=== PATIENT | female | born 1990 | race Caucasian/White ===

== ENCOUNTER 2017-03-28 16:13 | Observation (INO) ==
[2017-03-28 14:10] LABS: Amphetamine Screen,Urine Negative ng/mL (Cutoff=1000); Barbiturate Screen,Urine Negative ng/mL (Cutoff=200); Benzodiazepines Screen,Urine Negative ng/mL (Cutoff=200); Cannabinoid Screen,Urine Negative ng/mL (Cutoff = 50); Cocaine Screen,Urine Negative ng/mL (Cutoff= 300); Opiate Screen,Urine Negative ng/mL (Cutoff=300); Phencyclidine Screen,Urine Negative ng/mL (Cutoff=25)
--- NOTE | 2017-03-28 14:55 | OB/GYN History & Physical ---
Date of Encounter: 03/28/17 Time of Encounter: 14:51 Assessment and Plan (1) 37 weeks gestation of Current visit: No Status: Acute admitted for observation (2) Uterine contractions during Current visit: No Status: Acute labor evaluation (3) NST (non-stress test) reactive on surveillance Current visit: Yes Status: Acute baseline 135 bpm moderate variability +15x15 accels no decels noted. Cat. 1 tracing. History of Present Illness Chief complaint: contractions and LOF HPI: Ms. Beasley is a 26 year old female at 37w3d presents to labor and delivery with complaints of contractions all week long. Patient also reports when she sat up this morning she felt a small gush but denies any leaking since. Patient reports +FM. Denies VB. Patient denies [place], visual disturbances or epigastric pain. Patient denies any complications with current . Blood Type: A Positive Rubella: Immune Hep B: Nonreactive GBS: Negative Past Med Surg Social Fam HX - Past Medical History Medical history: other Psychiatric history: anxiety, depression - Social History Smoking Status: Never smoker Smokeless Tobacco Status: No Alcohol use: none Drug use: none - Family History Grandmother Living Status: Hx Family Endocrine Disorder: No (type 2 diabetes) Obstetrical History - Pregnancies : 1 Para: 0 Term: 0 : 0 Ab's: 0 Livin Medications and Allergies Bisacodyl [Dulcolax] 5 mg PO HS 03/28/17 [History] BuPROPion [Wellbutrin] 150 mg PO BID 03/28/17 [History] FLUoxetine HCl [PROzac] 20 mg PO DAILY 03/28/17 [History] Ferrous Sulfate 325 mg PO DAILY 03/28/17 [History] 19 Tablet 1 tab PO DAILY 03/28/17 [History] 3 Allergy/AdvReac Type Severity Reaction Status Date / Time almond Allergy Anaphylaxis Verified 03/28/17 13:51 Review of System OB - Constitutional Constitutional ROS IM: no chills, no fever(s), no headache(s) - Cardiovascular Cardiovascular: no chest pain, no lightheadedness, no palpitations, no syncope - Respiratory Respiratory: no dyspnea - Gastrointestinal Gastrointestinal: cramping, no abdominal pain, no diarrhea, no heartburn, no nausea, no vomiting - Genitourinary Genitourinary: no abnormal vaginal bleeding, no dysuria, no flank pain, no urinary frequency, no vaginal discharge, no vaginal odor Exam - Constitutional Constitutional: well developed, well nourished, no acute distress, average body habitus - HEENT HEENT: Normocephaly, Mucus Membranes Moist - Neck Neck exam: full ROM, supple - Lungs Respiratory exam: CTAB - Cardiovascular Cardiovascular exam: RRR, +S1, +S2 - Abdomen Abdomen: Present: bowel sounds normal, gravid, non tender - Extremities Extremities exam: full ROM, normal capillary refill, normal inspection Deep Tendon Reflex Grade: 2+ Normal - Cervix Dilation: 4 (4.5 per RN) Effacement: 80 Station: -2 - Uterus Uterus exam: Present: normal contour - Anus/Rectum Anus/Rectum: Present: normal perianal skin - Comments Comments: FHR 135 bpm moderate variability +15x15 accels no decels noted. Contractions 3- 10 min apart. Cat. 1 tracing Results All other labs normal. - VTE Reasons for not Prescribing Prophylaxis: Treatment not Indicated - Low risk for VTE
--- NOTE | 2017-03-28 16:20 | Event Note ---
Date of Encounter: 03/28/17 Time of Encounter: 16:19 BRAYAN 4.5//-1
--- NOTE | 2017-03-28 17:33 | Discharge Summary ---
Date of Encounter: 03/28/17 Time of Encounter: 17:34 - Discharge Diagnosis (1) 37 weeks gestation of Priority: Primary Status: Acute Comments: admitted for labor evaluation (2) Uterine contractions during Priority: Secondary Status: Acute Comments: false labor no cervical change (3) NST (non-stress test) reactive on surveillance Priority: Secondary Status: Acute Comments: fhr baseline 135 bpm moderate variability +15x15 accels no decels noted. Cat. 1 tracing - Discharge Medications Home Medications: Bisacodyl [Dulcolax] 5 mg PO HS 03/28/17 [History] BuPROPion [Wellbutrin] 150 mg PO BID 03/28/17 [History] FLUoxetine HCl [PROzac] 20 mg PO DAILY 03/28/17 [History] Ferrous Sulfate 325 mg PO DAILY 03/28/17 [History] 19 Tablet 1 tab PO DAILY 03/28/17 [History] Allergies/Adverse Reactions: 3 Allergy/AdvReac Type Severity Reaction Status Date / Time almond Allergy Anaphylaxis Verified 03/28/17 13:51 Data Procedures and tests throughout hospitalization: Laboratory Tests 03/28/17 13:40 Urine Opiates Screen Negative Ur Barbiturates Screen Negative Ur Phencyclidine Scrn Negative Ur Amphetamines Screen Negative U Benzodiazepines Scrn Negative Urine Cocaine Screen Negative U Marijuana (THC) Screen Negative Labs on day of discharge: Labs from last 24 hours 03/28/17 13:40 Urine Opiates Screen Negative Ur Barbiturates Screen Negative Ur Phencyclidine Scrn Negative Ur Amphetamines Screen Negative U Benzodiazepines Scrn Negative Urine Cocaine Screen Negative U Marijuana (THC) Screen Negative Date of admission: 03/28/17 13:20 Primary care physician: Lisa Miranda CNP Discharging clinician: Coby Munoz Anticipated date of discharge: 03/28/17 - Patient Status Disposition: Home, Self-Care Condition: Good Functional capacity at discharge: independent ambulation - Discharge Instructions Follow Up With: Lisa Miranda CNP [Primary Care Provider] - Nataly Marlow DO [Partnered Physician] - - Diet and Activity Activity: increase activity as tolerated Diet: regular diet Hospital Course 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 CAt. 1 tracing. Irregular contractions - VTE Reasons for not Prescribing Prophylaxis: Treatment not Indicated - Low risk for VTE
== END 2017-03-28 17:41 | disposition home or self-care (01) ==
LOC: 1NENULAB
PROVIDERS: ADMIT Obstetrics & Gynecology; ATTEND Obstetrics & Gynecology

== ENCOUNTER 2017-04-01 01:49 | Inpatient (IN) ==
[2017-04-01] MEDS ORDERED: Metoclopramide 10 MG/2 ML VIAL IVP PRN (01:59)
[2017-04-01] MEDS ORDERED: Naloxone 0.4 MG/ML INJ IVP PRN (01:59)
[2017-04-01] MEDS ORDERED: Famotidine 20 MG/2 ML VIAL IVP PRN (01:59)
[2017-04-01] MEDS ORDERED: Ondansetron 4 MG/2 ML VIAL IVP PRN (01:59)
--- NOTE | 2017-04-01 02:04 | OB/GYN History & Physical ---
Date of Encounter: 04/01/17 Time of Encounter: 02:02 Assessment and Plan (1) Spontaneous rupture of membranes Current visit: Yes Status: Acute Admit for expectant management. Epidural if requested. Anticipate . (2) 38 weeks gestation of Current visit: Yes Status: Acute (3) Elevated blood pressure affecting in third trimester, antepartum Current visit: No Status: Acute PIH labs ordered. History of Present Illness Chief complaint: contractions HPI: Ms. Beasley is a 26 year old female presenting at 38 weeks with c/o contractions and leaking fluid. She reports a gush of clear fluid at 0040 followed by continued leaking. She then started having regular contractions a few minutes later. Her has been complicated by macrosomia and elevated 1 hour glucose test. Her 3 hour GTT was normal. She denies any other complaints at this time. Good FM. Blood type A positive Rubella immune Serologies negative GBS negative Past Med Surg Social Fam HX - Past Medical History Medical history: other Psychiatric history: anxiety, depression - Social History Smoking Status: Never smoker Smokeless Tobacco Status: No Alcohol use: none Drug use: none - Family History Grandmother Living Status: Hx Family Endocrine Disorder: No (type 2 diabetes) Obstetrical History - Pregnancies : 1 Medications and Allergies Bisacodyl [Dulcolax] 5 mg PO HS 03/28/17 [History] BuPROPion [Wellbutrin] 150 mg PO BID 03/28/17 [History] FLUoxetine HCl [PROzac] 20 mg PO DAILY 03/28/17 [History] Ferrous Sulfate 325 mg PO DAILY 03/28/17 [History] 19 Tablet 1 tab PO DAILY 03/28/17 [History] 3 Allergy/AdvReac Type Severity Reaction Status Date / Time almond Allergy Anaphylaxis Verified 03/28/17 13:51 Review of System OB All systems PM: reviewed and no additional remarkable complaints except as stated Exam - Constitutional Constitutional: well developed, well nourished - HEENT HEENT: Mucus Membranes Moist - Lungs Respiratory exam: CTAB - Cardiovascular Cardiovascular exam: RRR - Abdomen Abdomen: Present: gravid, non tender - Extremities Extremities exam: normal inspection - Cervix Dilation: 5 - Anus/Rectum Anus/Rectum: Present: normal perianal skin Results Result Diagrams: 04/01/17 02:05 All other labs normal. - VTE Reasons for not Prescribing Prophylaxis: Treatment not Indicated - Low risk for VTE
[2017-04-01] MEDS ORDERED: *HR* Nalbuphine 20 MG/ML AMPUL IVP ONE (02:12)
[2017-04-01] MEDS ORDERED: Ringers Solution, Lactated 1,000 ML ONE (02:16)
[2017-04-01 02:18] LABS: Basophils % 0.4 %; Eosinophils # 0.2 K/mcL (0.0-0.6); Eosinophils % 1.4 %; Hematocrit 33.9 % (35.3-44.9); Hemoglobin 10.7 g/dL (11.5-15.4); Immature Granulocytes % 0.7 % (0-4); Lymphocytes % 27.1 %; Mean Corpuscular HGB Conc 31.6 g/dL (31.6-35.5); Mean Corpuscular Hemoglobin 27.4 pg (28.0-33.3); Mean Corpuscular Volume 86.9 fL (83.0-100.0); Mean Platelet Volume 11.3 fL (9.4-12.4); Monocytes # 1.2 K/mcL (0.0-1.3); Neutrophils # 6.6 K/mcL (1.6-8.9); Platelet Count 243 K/mcL (140-400); Red Cell Distribution Width 15.6 % (11.5-14.5); Segmented Neutrophils % 59.4 %
[2017-04-01] MEDS ORDERED: Lidocaine 1% 20 ML MDV ONE (02:45)
--- NOTE | 2017-04-01 04:38 | OB/GYN Procedure Note ---
Delivery - Delivery Date: 04/01/17 Provider: Amanda Yuen Intrapartum events: precipitous labor- <3hr Delivery induction: none Delivery augmentation: rupture of membranes Delivery monitor: external FHT, external uterine Anesthesia: intravenous Estimated Blood Loss: 450 - (s) A Infant Delivery Date: 04/01/17 Infant Delivery Time: 03:39 Presentation: vertex Gender: Male Viability: Viable Pounds: 9 Ounces: 0 Weight Gram: 4.09 kg at 1 minute: 8 at 5 mins: 9 Shoulder Dystocia: not encountered Placenta: spontaneous Cord: 3 umbilical vessels, delivered through nuchal - Repair Episiotomy: none Laceration Description: Perineal - 2nd Degree, Vaginal - Complications Delivery complications: uterine atony Delivery comments: Pt progressed rapidly to complete and +1. She pushed effectively to for viable male weighing 9lbs with apgars 8/9. After pulsations ceased the cord was clamped and cut and the placenta delivered spontaneous and intact. Uterine atony was noted and cytotec was administered. Bleeding was controlled with fundal massage. 2nd degree perineal and right vaginal lacerations were repaired with 2-0 Chromic. EBL 450ml. Mother and baby stable following delivery. - Disposition Mom disposition: stable in LDR disposition: stable in LDR
[2017-04-01 05:06] LABS: Alanine Aminotransferase 7 Units/L (7-52); Aspartate Amino Transferase 15 Units/L (13-39); BUN/Creatinine Ratio 11 (6-26); Blood Urea Nitrogen 7 mg/dL (6-20); Lactate Dehydrogenase 146 Units/L (140-271); Uric Acid 4.9 mg/dL (2.3-7.6); eGFR For African Americans > 60 (> 60); eGFR For Non-African Americans > 60 (> 60)
[2017-04-01] MEDS ORDERED: Oxytocin 20 units/ LR 1000 mL 20 UNIT/1,000 ML BAG IVC ONE (06:36)
[2017-04-01] MEDS ORDERED: Acetaminophen 325 MG TABLET PO PRN (07:15)
[2017-04-01] MEDS ORDERED: Measles/Mumps/Rubella Vacc 0.5 ML VIAL SQ PRN (07:15)
[2017-04-01] MEDS ORDERED: Benzocaine/Menthol 56 GM AEROSOL SPRAY TP PRN (07:15)
[2017-04-01] MEDS ORDERED: Oxytocin 20 units/ LR 1000 mL 20 UNIT/1,000 ML BAG IVC SCH (07:15)
[2017-04-01] MEDS: FLUoxetine 20 MG CAPSULE PO SCH (09:07)
[2017-04-01] MEDS: Prenatal Vit/FA 1 EACH TABLET PO SCH (09:07)
[2017-04-01] MEDS ORDERED: miSOPROStol 100 MCG TABLET PO ONE (11:59)
[2017-04-01] MEDS: Ibuprofen 600 MG TABLET PO PRN ×2 (16:24→23:03)
[2017-04-02] MEDS: Ibuprofen 600 MG TABLET PO PRN ×2 (06:30→14:25)
[2017-04-02] MEDS: Prenatal Vit/FA 1 EACH TABLET PO SCH (08:37)
[2017-04-02] MEDS: FLUoxetine 20 MG CAPSULE PO SCH (08:37)
--- NOTE | 2017-04-02 09:14 | Discharge Summary ---
Date of Encounter: 04/02/17 Time of Encounter: 09:11 - Discharge Diagnosis (1) Vaginal delivery Priority: Primary Status: Acute Comments: Pain well controlled with ibuprofen Tolerating regular diet well Voiding independently Passing flatus and has had BM Lochia light Discharge home today (2) Breast feeding status of mother Priority: Secondary Status: Acute Comments: well Call LC for needs after discharge (3) History of depression Priority: Secondary Status: Acute Comments: Start prozac on discharge Call for further concerns - Discharge Medications Prescriptions: Ibuprofen [Motrin] 600 mg PO Q6HR PRN #30 tablet PRN Reason: Cramping Docusate [Colace] 100 mg PO BID #60 capsule Ferrous Sulfate 325 mg PO DAILY #30 tablet Home Medications: Bisacodyl [Dulcolax] 5 mg PO HS 03/28/17 [History] 19 Tablet 1 tab PO DAILY 03/28/17 [History] Acetaminophen [Tylenol] 650 mg PO Q6HR PRN tablet 04/02/17 [Rx] Benzocaine/Menthol [place] [Dermoplast [place]] 1 appl TP QID PRN aerosol 04/02/17 [Rx] Docusate [Colace] 100 mg PO BID #60 capsule 04/02/17 [Rx] Ferrous Sulfate 325 mg PO DAILY #30 tablet 04/02/17 [Rx] Ibuprofen [Motrin] 600 mg PO Q6HR PRN #30 tablet 04/02/17 [Rx] Allergies/Adverse Reactions: 3 Allergy/AdvReac Type Severity Reaction Status Date / Time almond Allergy Anaphylaxis Verified 03/28/17 13:51 Data Procedures and tests throughout hospitalization: Laboratory Tests 04/01/17 04/01/17 02:05 02:05 WBC 11.1 RBC 3.90 Hgb 10.7 L Hct 33.9 L MCV 86.9 MCH 27.4 L MCHC 31.6 RDW 15.6 H Plt Count 243 MPV 11.3 Immature Gran % 0.7 Seg Neutrophils % 59.4 Lymphocytes % 27.1 Monocytes % 11.0 Eosinophils % 1.4 Basophils % 0.4 Neutrophils # 6.6 Lymphocytes # 3.0 Monocytes # 1.2 Eosinophils # 0.2 Basophils # 0.0 BUN 7 Creatinine 0.61 Est GFR ( Amer) > 60 Est GFR (Non-Af Amer) > 60 BUN/Creatinine Ratio 11 Uric Acid 4.9 AST 15 ALT 7 Lactate Dehydrogenase 146 Date of admission: 04/01/17 01:49 Primary care physician: Lisa Miranda CNP Consults: 04/01/17 07:15 Consult to Director Specialty [CONS] Routine Comment: Vaginal delivery, consult needed Discharging clinician: Janna Urias Anticipated date of discharge: 04/02/17 - Patient Status Disposition: Home, Self-Care Condition: Good Functional capacity at discharge: independent ambulation Overall status at discharge: patient is progressing back to baseline - Discharge Instructions Follow Up With: Lisa Miranda CNP [Primary Care Provider] - Nataly Marlow DO [Partnered Physician] - - Diet and Activity Activity: increase activity as tolerated Diet: regular diet Hospital Course Reason for admission: active labor, IUP at term, ROM Delivery: Episiotomy: none Laceration: 2nd degree Other procedures: none complications: none Discharge diagnosis: IUP at term delivered [place] baby: female Time Attestation: Total time spent providing and/or coordinating discharge services: Time Spent: Less than 30 minutes Exam - Constitutional Vitals: Temp Pulse Resp BP Pulse Ox 98.2 F 102 18 137/86 96 04/01/17 21:30 04/01/17 21:30 04/01/17 21:30 04/01/17 21:30 04/01/17 21:30 General appearance IM: cooperative, A&O X 3, pleasant, no acute distress - Respiratory Respiratory exam: Present: CTAB - Cardiovascular Cardiovascular exam IM: Present: RRR, +S1, +S2 - GI/Abdominal GI/Abdominal exam IM: normal bowel sounds, no peritoneal signs - Rectal Rectal exam: deferred - Uterine Tone: Firm Uterus Position: 1 Finger Below Umbilicus, Midline - Extremities Exam Extremities exam IM: Present: full ROM, pedal edema - Neurological Exam Neurological exam: alert, oriented X3 - Psychiatric Additional comments: Feeling well today
[2017-04-02 09:23] VITALS: BP 133/85
== END 2017-04-02 16:07 | disposition home or self-care (01) | DRG 774 ==
LOC: 1NENULAB 01:49 → 1NENUOBS 07:23
PROVIDERS: ADMIT Registered Nurse; ATTEND Registered Nurse

== ENCOUNTER 2017-04-07 10:12 | Inpatient (IN) ==
--- NOTE | 2017-04-07 10:58 | Emergency Department Note ---
Disposition Clinical Impression: Swelling of lower extremity Dyspnea Qualifiers: Dyspnea type: unspecified Qualified Code(s): R06.00 - Dyspnea, unspecified Disposition: Home, Self-Care Condition: Fair Reasons to Return/Additional Instructions: . Referrals: Lisa Miranda CNP [Primary Care Provider] - Forms: ED Satisfaction Letter Time of Disposition: 15:30 General Adult HPI - General Chief complaint: ED Extremity Problem,Nontraumatic Stated complaint: Swelling in both legs Time Seen by Provider: 04/07/17 10:21 Source: patient Mode of arrival: ambulatory Limitations: no limitations Nursing Notes Reviewed: Yes Vital Signs Reviewed: Yes - History of Present Illness HPI Narrative: 26-year-old female approximately 7 days present for evaluation of lower ext swelling that appears to be right greater than left.. Patient also noted a nonproductive cough. Notes to be dyspneic with lying down. Patient notes an uneventful . No history of high blood pressure diabetes. Patient states he still urinating. Denying any chest pain. Denying any fevers or cough. Patient was told by her wildlife protector to go to the ER for further evaluation. Pain Scale: 1 - Related Data Home Medications Medication Instructions Recorded Confirmed BuPROPion XL (24 HR) [Wellbutrin 150 mg PO DAILY 04/07/17 04/07/17 XL] FLUoxetine HCl [PROzac] 20 mg PO DAILY 04/07/17 04/07/17 Previous Rx's Medication Instructions Recorded Acetaminophen [Tylenol] 650 mg PO Q6HR PRN tablet 04/02/17 Benzocaine/Menthol [place] 1 appl TP QID PRN aerosol 04/02/17 [Dermoplast [place]] Docusate [Colace] 100 mg PO BID #60 capsule 04/02/17 Ferrous Sulfate 325 mg PO DAILY #30 tablet 04/02/17 Ibuprofen [Motrin] 600 mg PO Q6HR PRN #30 tablet 04/02/17 Allergies Allergy/AdvReac Type Severity Reaction Status Date / Time almond Allergy Anaphylaxis Verified 04/07/17 10:50 All systems ED: reviewed and negative except as stated. Constitutional: Denies: fever Cardiovascular: Denies: chest pain, palpitations Respiratory: Reports: cough, dyspnea. Denies: sputum production Gastrointestinal: Denies: abdominal pain, nausea, vomiting Past Medical History - Past Medical History Medical history: Reports: other Surgical history: Reports: other Psychiatric history: Reports: anxiety, depression - Social History Smoking Status: Never smoker Smokeless Tobacco Status: No Alcohol use: Reports: none Drug use: Reports: none Physical Exam - General Limitations: no limitations General appearance: alert, in no apparent distress - Head Head exam: atraumatic, normocephalic, normal inspection - Eye Eye exam: Present: normal appearance, PERRL, EOMI - ENT ENT exam: normal exam, normal oropharynx, mucous membranes moist - Neck Neck exam: Present: normal inspection, trachea midline - Chest Chest inspection: Present: normal inspection, symmetric chest wall rise - Respiratory Respiratory exam: Present: normal lung sounds bilaterally. Absent: respiratory distress - Cardiovascular Cardiovascular exam: Present: regular rate, normal rhythm. Absent: systolic murmur - Abdominal Exam Abdominal exam: Present: soft, Non-Tender - Extremities Exam Extremities exam: Present: normal inspection, pedal edema (Right asymmetric larceny swelling tender on the posterior calf) - Back Exam Back exam: Present: normal inspection - Neurological Exam Neurological exam: Present: alert, oriented X3 - Skin Skin exam: Present: warm, dry, intact, normal color Course Course Narrative: Patient seen and examined. Patient appears to be in no acute distress. Patient will get basic labs, chest x-ray and DVT study of the right leg. - Reevaluation(s) Reevaluation #1: She has a negative ultrasound of the lower legs Time: 12:07 Reevaluation #2: Patient seen and examined. Patient appears to be resting comfortably. No acute distress. Patient was updated on plan of care. Concerns for cardiomyopathy. Awaiting ED media technician.` Time: 12:21 Reevaluation #3: Patient's CT results reveal that she has findings consistent with multifocal pneumonia. However given the patient's cough is consistent patients not requiring oxygen. Given these findings the patient should best be evaluated as an inpatient with IV antibiotics. Spoke with pharmacy regarding dosing of antibiotics during breast-feeding. States it the patient should formula feed. This was discussed with the patient states she will formula feed. Time: 16:31 - Consultations Consultation #1: With Dr. Lares who states that they will tell the hvac field service technician to come down to the ER to perform the echo. Time: 11:38 Consultation #2: With Dr. Lares he does not seem just that this is cardiomyopathy given the recent echo. Patient is given Lasix. However given the patient's dyspnea a negative ultrasound lower leg does not rule out a PE. Patient will get a CTA of the chest. Time: 15:28 Consultation #3: Spoke with hospitalist who recommends getting a formal NEUROLOGY STROKE PHYSICIAN consult. Time: 17:03 Vital Signs Temperature 99.0 F 04/07/17 10:14 Pulse Rate 95 04/07/17 10:14 Respiratory Rate 18 04/07/17 10:14 Blood Pressure 150/97 04/07/17 10:14 O2 Sat by Pulse Oximetry 97 04/07/17 10:14 Temperature 99.0 F 04/07/17 10:14 Pulse Rate 81 04/07/17 16:13 Respiratory Rate 16 04/07/17 16:13 Blood Pressure 147/95 04/07/17 16:13 O2 Sat by Pulse Oximetry 94 04/07/17 16:13 Oxygen Delivery Oxygen Delivery Room Air Medical Decision Making - MDM Narrative Medical decision making narrative: Patient presents with dyspnea. Patient's . Patient had an extensive workup in the emergency department. Patient had imaging of the lower extremity including an ultrasound which showed no evidence of DVT. Patient had echo as there is concern cardiomyopathy however results were reviewed to the reservations clerk and did not feel that it was cardiomyopathy. Patient does have slightly elevated BNP and mild pulmonary congestion. Patient was given Lasix in the ER. Patient was also given a CTA of the chest. Patient's CT of the chest shows multifocal pneumonia. Patient will be treated as healthcare associated pneumonia given her recent hospital stay with her of her . - Lab Data Lab results reviewed: Yes I reviewed the patient's lab results. Result diagrams: 04/07/17 11:34 04/07/17 11:34 Lab Results 04/07/17 04/07/17 04/07/17 Range/Units 11:34 11:34 11:34 WBC 10.0 (4.3-11.1) K/mcL RBC 3.32 L (3.82-4.97) M/mcL Hgb 9.3 L (11.5-15.4) g/dL Hct 29.9 L (35.3-44.9) % MCV 90.1 (83.0-100.0) fL MCH 28.0 (28.0-33.3) pg MCHC 31.1 L (31.6-35.5) g/dL RDW 16.9 H (11.5-14.5) % Plt Count 368 D (140-400) K/mcL MPV 9.6 (9.4-12.4) fL Immature Gran % 1.4 (0-4) % Seg Neutrophils % 69.1 % Lymphocytes % 19.6 % Monocytes % 7.7 % Eosinophils % 1.8 % Basophils % 0.4 % Neutrophils # 6.9 (1.6-8.9) K/mcL Lymphocytes # 2.0 (0.6-4.6) K/mcL Monocytes # 0.8 (0.0-1.3) K/mcL Eosinophils # 0.2 (0.0-0.6) K/mcL Basophils # 0.0 (0.0-0.2) K/mcL Sodium 141 (136-145) mEq/L Potassium 4.0 (3.5-5.1) mEq/L Chloride 110 H (98-107) mEq/L Carbon Dioxide 22 L (23-29) mEq/L BUN 11 (6-20) mg/dL Creatinine 0.81 (0.60-1.20) mg/dL Est GFR ( Amer) > 60 (> 60) Est GFR (Non-Af Amer) > 60 (> 60) BUN/Creatinine Ratio 14 (6-26) Glucose 88 (70-105) mg/dL Calculated Osmolality 291 (280-300) Calcium 8.4 L (8.6-10.3) mg/dL Total Bilirubin 0.3 (0.3-1.0) mg/dL AST 15 (13-39) Units/L ALT 13 (7-52) Units/L Alkaline Phosphatase 100 (34-104) Units/L Troponin I < 0.03 (< 0.04) ng/mL B-Natriuretic Peptide (Less than 100) pg/mL Serum Total Protein 5.8 L (6.4-8.9) g/dL Albumin 2.9 L (3.5-5.7) g/dL Globulin 2.9 (2.4-3.5) g/dL Albumin/Globulin Ratio 1.0 L (1.1-2.2) 04/07/17 Range/Units 11:34 WBC (4.3-11.1) K/mcL RBC (3.82-4.97) M/mcL Hgb (11.5-15.4) g/dL Hct (35.3-44.9) % MCV (83.0-100.0) fL MCH (28.0-33.3) pg MCHC (31.6-35.5) g/dL RDW (11.5-14.5) % Plt Count (140-400) K/mcL MPV (9.4-12.4) fL Immature Gran % (0-4) % Seg Neutrophils % % Lymphocytes % % Monocytes % % Eosinophils % % Basophils % % Neutrophils # (1.6-8.9) K/mcL Lymphocytes # (0.6-4.6) K/mcL Monocytes # (0.0-1.3) K/mcL Eosinophils # (0.0-0.6) K/mcL Basophils # (0.0-0.2) K/mcL Sodium (136-145) mEq/L Potassium (3.5-5.1) mEq/L Chloride (98-107) mEq/L Carbon Dioxide (23-29) mEq/L BUN (6-20) mg/dL Creatinine (0.60-1.20) mg/dL Est GFR ( Amer) (> 60) Est GFR (Non-Af Amer) (> 60) BUN/Creatinine Ratio (6-26) Glucose (70-105) mg/dL Calculated Osmolality (280-300) Calcium (8.6-10.3) mg/dL Total Bilirubin (0.3-1.0) mg/dL AST (13-39) Units/L ALT (7-52) Units/L Alkaline Phosphatase (34-104) Units/L Troponin I (< 0.04) ng/mL B-Natriuretic Peptide 290 H (Less than 100) pg/mL Serum Total Protein (6.4-8.9) g/dL Albumin (3.5-5.7) g/dL Globulin (2.4-3.5) g/dL Albumin/Globulin Ratio (1.1-2.2) - Radiology Data Radiology results reviewed: Yes I reviewed the patient's radiology results. Chest X-Ray 04/07/17 10:30 IMPRESSION: 1. Minimal prominence of the pulmonary vasculature, left greater than right. 2. Otherwise, no focal consolidation or pleural effusion. D/ / Matt Sanchez MD / Matt Sanchez MD Interpreting Provider: Matt Sanchez MD - EKG Data EKG #1 EKG attestation: Yes I reviewed and interpreted this EKG. EKG shows normal: sinus rhythm Rate: normal Rhythm: NSR [place]/QRS: normal Q waves: III Interpretation: no acute changes S.B.A.Daryl. - S.Nadine Situation: Demographics Background: Presenting Complaint Assessment: Vital Signs, Course and respsone to treatment Recommendation: Barrier(s) to disposition, Recommendation based on pending studies, treatments, or consults S.B.Maurice Report Given to: Curtis Pope Repor Time: 17:02 Attestation Statement - Attestation Attestation: I examined this patient and my medical decision-making was reviewed with the Resident Physician. I agree with the documented findings, disposition and treatment plan as described except to the extent set forth below. Patient 80s when he elects swelling and difficulty breathing. Patient states her legs are increasingly swollen. She is about a week . She also feels like there is "fluid in her lungs." On examination she is in no distress. Her lungs are clear. She does have significant edema to bilateral lower extremities. Right greater than left.. DVT study. Cardiac workup. Patient with vascular congestion on chest x-ray. Will discuss with cardiology. Patient with multifocal pneumonia. Echo shows normal EF. Not felt to have a cardiomyopathy. OB is aware of the consult. Admitted to medicine.
[2017-04-07 11:46] LABS: Basophils % 0.4 %; Eosinophils # 0.2 K/mcL (0.0-0.6); Eosinophils % 1.8 %; Hematocrit 29.9 % (35.3-44.9); Hemoglobin 9.3 g/dL (11.5-15.4); Immature Granulocytes % 1.4 % (0-4); Lymphocytes % 19.6 %; Mean Corpuscular HGB Conc 31.1 g/dL (31.6-35.5); Mean Corpuscular Volume 90.1 fL (83.0-100.0); Mean Platelet Volume 9.6 fL (9.4-12.4); Monocytes # 0.8 K/mcL (0.0-1.3); Monocytes % 7.7 %; Neutrophils # 6.9 K/mcL (1.6-8.9); Platelet Count 368 K/mcL (140-400); Red Blood Count 3.32 M/mcL (3.82-4.97); Red Cell Distribution Width 16.9 % (11.5-14.5); Segmented Neutrophils % 69.1 %
--- NOTE | 2017-04-07 12:29 | Electrocardiograph Report ---
[place] Test Date: 2017-04-07 Pat Name: Yvtete Beasley Department: 102 Room: Gender: F Physical Therapy Aide: Tmanai : 1990 Requested By: Abhishek Dunham Order Number: [id number] Rosangela MD: Carlyle Salas MD Measurements Intervals [place] Rate: 94 P: 21 VT: 150 QRS: 54 QRSD: 83 T: 19 QT: 345 QTc: 396 Interpretive Statements SINUS RHYTHM WARNING: DATA QUALITY MAY AFFECT INTERPRETATION Electronically Signed On 04-07-2017 12:27:48 EST by Carlyle Salas MD
[2017-04-07 12:48] LABS: Alanine Aminotransferase 13 Units/L (7-52); Albumin 2.9 g/dL (3.5-5.7); Alkaline Phosphatase 100 Units/L (34-104); Aspartate Amino Transferase 15 Units/L (13-39); BUN/Creatinine Ratio 14 (6-26); Bilirubin,Total 0.3 mg/dL (0.3-1.0); Blood Urea Nitrogen 11 mg/dL (6-20); Calcium 8.4 mg/dL (8.6-10.3); Carbon Dioxide 22 mEq/L (23-29); Chloride 110 mEq/L (98-107); Globulin 2.9 g/dL (2.4-3.5); Glucose 88 mg/dL (70-105); Osmolality,Calculated 291 (280-300); Sodium 141 mEq/L (136-145); Total Protein 5.8 g/dL (6.4-8.9); eGFR For African Americans > 60 (> 60); eGFR For Non-African Americans > 60 (> 60)
[2017-04-07] MEDS ORDERED: Furosemide 20 MG/2 ML VIAL IVP ONE (14:28)
[2017-04-07] MEDS ORDERED: Piperacillin/Tazobactam 3.375 GM in 0.9 % Sodium Chloride Mini Bag 100 ML IVPB ONE (16:29)
--- NOTE | 2017-04-07 18:10 | Emergency Department Note ---
Disposition Clinical Impression: Swelling of lower extremity Dyspnea Qualifiers: Dyspnea type: unspecified Qualified Code(s): R06.00 - Dyspnea, unspecified Pneumonia Qualifiers: Pneumonia type: due to unspecified organism Laterality: unspecified laterality Lung location: unspecified part of lung Qualified Code(s): J18.9 - Pneumonia, unspecified organism Pulmonary edema Qualifiers: Chronicity: chronic Qualified Code(s): J81.1 - Chronic pulmonary edema Disposition: Home, Self-Care Condition: Fair Reasons to Return/Additional Instructions: . Referrals: Lisa Miranda CNP [Primary Care Provider] - Forms: ED Satisfaction Letter Time of Disposition: 18:11 General Adult HPI - General Chief complaint: ED Extremity Problem,Nontraumatic Stated complaint: Swelling in both legs Time Seen by Provider: 04/07/17 10:21 Source: patient Mode of arrival: ambulatory Limitations: no limitations - History of Present Illness HPI Narrative: Continuation of documentation. Pain Scale: 1 - Related Data Home Medications Medication Instructions Recorded Confirmed BuPROPion XL (24 HR) [Wellbutrin 150 mg PO DAILY 04/07/17 04/07/17 XL] FLUoxetine HCl [PROzac] 20 mg PO DAILY 04/07/17 04/07/17 Previous Rx's Medication Instructions Recorded Acetaminophen [Tylenol] 650 mg PO Q6HR PRN tablet 04/02/17 Benzocaine/Menthol [place] 1 appl TP QID PRN aerosol 04/02/17 [Dermoplast [place]] Docusate [Colace] 100 mg PO BID #60 capsule 04/02/17 Ferrous Sulfate 325 mg PO DAILY #30 tablet 04/02/17 Ibuprofen [Motrin] 600 mg PO Q6HR PRN #30 tablet 04/02/17 Allergies Allergy/AdvReac Type Severity Reaction Status Date / Time almond Allergy Anaphylaxis Verified 04/07/17 10:50 Constitutional: Denies: fever Cardiovascular: Denies: chest pain, palpitations Respiratory: Reports: cough, dyspnea. Denies: sputum production Gastrointestinal: Denies: abdominal pain, nausea, vomiting Past Medical History - Past Medical History Medical history: Reports: other Surgical history: Reports: other Psychiatric history: Reports: anxiety, depression - Social History Smoking Status: Never smoker Smokeless Tobacco Status: No Alcohol use: Reports: none Drug use: Reports: none Physical Exam - General Limitations: no limitations General appearance: alert, in no apparent distress Course - Reevaluation(s) Reevaluation #1: Patient began to develop a reaction to the antibiotics. Likely the vancomycin. Clindamycin will be DC'd at this point. Patient will be given Benadryl. Patient does have lower lip edema as well as redness to the face and upper chest. No signs of airway obstruction. No wheezing. Time: 18:08 Vital Signs Temperature 99.0 F 04/07/17 10:14 Pulse Rate 95 04/07/17 10:14 Respiratory Rate 18 04/07/17 10:14 Blood Pressure 150/97 04/07/17 10:14 O2 Sat by Pulse Oximetry 97 04/07/17 10:14 Temperature 99.0 F 04/07/17 10:14 Pulse Rate 104 04/07/17 18:10 Respiratory Rate 16 04/07/17 18:10 Blood Pressure 151/89 04/07/17 18:10 O2 Sat by Pulse Oximetry 99 04/07/17 18:10 Oxygen Delivery Oxygen Delivery Room Air Medical Decision Making - Lab Data Result diagrams: 04/07/17 11:34 04/07/17 11:34 Lab Results 04/07/17 04/07/17 04/07/17 Range/Units 11:34 11:34 11:34 WBC 10.0 (4.3-11.1) K/mcL RBC 3.32 L (3.82-4.97) M/mcL Hgb 9.3 L (11.5-15.4) g/dL Hct 29.9 L (35.3-44.9) % MCV 90.1 (83.0-100.0) fL MCH 28.0 (28.0-33.3) pg MCHC 31.1 L (31.6-35.5) g/dL RDW 16.9 H (11.5-14.5) % Plt Count 368 D (140-400) K/mcL MPV 9.6 (9.4-12.4) fL Immature Gran % 1.4 (0-4) % Seg Neutrophils % 69.1 % Lymphocytes % 19.6 % Monocytes % 7.7 % Eosinophils % 1.8 % Basophils % 0.4 % Neutrophils # 6.9 (1.6-8.9) K/mcL Lymphocytes # 2.0 (0.6-4.6) K/mcL Monocytes # 0.8 (0.0-1.3) K/mcL Eosinophils # 0.2 (0.0-0.6) K/mcL Basophils # 0.0 (0.0-0.2) K/mcL Sodium 141 (136-145) mEq/L Potassium 4.0 (3.5-5.1) mEq/L Chloride 110 H (98-107) mEq/L Carbon Dioxide 22 L (23-29) mEq/L BUN 11 (6-20) mg/dL Creatinine 0.81 (0.60-1.20) mg/dL Est GFR ( Amer) > 60 (> 60) Est GFR (Non-Af Amer) > 60 (> 60) BUN/Creatinine Ratio 14 (6-26) Glucose 88 (70-105) mg/dL Calculated Osmolality 291 (280-300) Calcium 8.4 L (8.6-10.3) mg/dL Total Bilirubin 0.3 (0.3-1.0) mg/dL AST 15 (13-39) Units/L ALT 13 (7-52) Units/L Alkaline Phosphatase 100 (34-104) Units/L Troponin I < 0.03 (< 0.04) ng/mL B-Natriuretic Peptide (Less than 100) pg/mL Serum Total Protein 5.8 L (6.4-8.9) g/dL Albumin 2.9 L (3.5-5.7) g/dL Globulin 2.9 (2.4-3.5) g/dL Albumin/Globulin Ratio 1.0 L (1.1-2.2) 04/07/17 Range/Units 11:34 WBC (4.3-11.1) K/mcL RBC (3.82-4.97) M/mcL Hgb (11.5-15.4) g/dL Hct (35.3-44.9) % MCV (83.0-100.0) fL MCH (28.0-33.3) pg MCHC (31.6-35.5) g/dL RDW (11.5-14.5) % Plt Count (140-400) K/mcL MPV (9.4-12.4) fL Immature Gran % (0-4) % Seg Neutrophils % % Lymphocytes % % Monocytes % % Eosinophils % % Basophils % % Neutrophils # (1.6-8.9) K/mcL Lymphocytes # (0.6-4.6) K/mcL Monocytes # (0.0-1.3) K/mcL Eosinophils # (0.0-0.6) K/mcL Basophils # (0.0-0.2) K/mcL Sodium (136-145) mEq/L Potassium (3.5-5.1) mEq/L Chloride (98-107) mEq/L Carbon Dioxide (23-29) mEq/L BUN (6-20) mg/dL Creatinine (0.60-1.20) mg/dL Est GFR ( Amer) (> 60) Est GFR (Non-Af Amer) (> 60) BUN/Creatinine Ratio (6-26) Glucose (70-105) mg/dL Calculated Osmolality (280-300) Calcium (8.6-10.3) mg/dL Total Bilirubin (0.3-1.0) mg/dL AST (13-39) Units/L ALT (7-52) Units/L Alkaline Phosphatase (34-104) Units/L Troponin I (< 0.04) ng/mL B-Natriuretic Peptide 290 H (Less than 100) pg/mL Serum Total Protein (6.4-8.9) g/dL Albumin (3.5-5.7) g/dL Globulin (2.4-3.5) g/dL Albumin/Globulin Ratio (1.1-2.2)
[2017-04-07] MEDS ORDERED: Naloxone 0.4 MG/ML INJ IVP PRN (21:24)
[2017-04-07] MEDS ORDERED: Acetaminophen 325 MG TABLET PO PRN (21:32)
[2017-04-07] MEDS ORDERED: Benzocaine/Menthol 56 GM AEROSOL SPRAY TP PRN (21:32)
[2017-04-07] MEDS ORDERED: Ibuprofen 600 MG TABLET PO PRN (21:32)
--- NOTE | 2017-04-07 21:40 | Internal Med History&Physical ---
Date of Encounter: 04/07/17 Time of Encounter: 20:00 Assessment and Plan (1) CHF (congestive heart failure) Current visit: Yes Status: Acute Pt has b/l leg swelling, exertional SOB and mild elevated BNP. Echo shows EF 60- 65% not support cardiomyopathy. Suspect diastolic CHF. - Place pt on lasix 20mg iv daily. - Strict I/O - Will consult cardio as pt is young and no previous hx of CHF. Qualifiers: Heart failure type: diastolic Heart failure chronicity: acute Qualified Code(s): I50.31 - Acute diastolic (congestive) heart failure (2) Pneumonia Current visit: Yes Status: Acute CTA shows multifocal pneumonia. Pt was recent hospitalized. Consider HCAP. Pt is allergic to vanco in ER. - Zyvox has conflict with pt's psych medication. Place pt on doxycyclin and zosyn. - Cont supportive treatment - Hold during abx treatment. Qualifiers: Pneumonia type: due to unspecified organism Laterality: bilateral Lung location: upper lobe of lung Qualified Code(s): J18.9 - Pneumonia, unspecified organism (3) Swelling of lower extremity Current visit: Yes Status: Acute Possibly due to CHF. Management as above. (4) History of depression Current visit: No Status: Acute Cont home meds. (5) DVT prophylaxis Current visit: Yes Status: Acute Lovenox SC Internal Medicine - H&P: HPI Chief complaint: Leg swelling Admitted From: Home Plans for Post Hospital Care: Home History of present illness: Ms. Beasley is a 26 year old female with hx of depression and recent baby on last Tuesday present to ER for b/l leg swelling. Pt said leg swelling started by the end of but get even worse after delivery. Pt denies leg pain. Pt denies fever, runny nose, or sore throat. Pt has mild nonproductive cough for about 3 days. Pt c/o SOB on exertion. In ER, leg US doppler ordered, preliminary result negative for DVT. CTA was also ordered, no PE but was found multifocal pneumonia. Echo was ordered and pt was found LVEF 60-65%. BNP mildly elevated. Pt was admitted for HCAP and possible diastolic CHF. Past Med Surg Social Fam HX - Past Medical History Medical history: other Psychiatric history: anxiety, depression - Past Surgical History Surgical History: other - Social History Smoking Status: Never smoker Smokeless Tobacco Status: No Alcohol use: none Drug use: none - Family History Grandmother Adopted: No Living Status: Hx Family Cardiac Disorders: Yes (chf) Hx Family Respiratory Disorders: No Hx Family Cancer: Yes (colon ca) Hx Family GI Disorders: No Hx Family Endocrine Disorder: Yes (dm) Hx Family Neuromuscular Disorders: No Hx Family Neurologic Disorders: No Hx Family HEENT Disorders: No Hx Family Autoimmune Disorders: No Internal Medicine - H&P: Meds Acetaminophen [Tylenol] 650 mg PO Q6HR PRN tablet 04/02/17 [Rx] Benzocaine/Menthol [place] [Dermoplast [place]] 1 appl TP QID PRN aerosol 04/02/17 [Rx] Docusate [Colace] 100 mg PO BID #60 capsule 04/02/17 [Rx] Ferrous Sulfate 325 mg PO DAILY #30 tablet 04/02/17 [Rx] Ibuprofen [Motrin] 600 mg PO Q6HR PRN #30 tablet 04/02/17 [Rx] BuPROPion XL (24 HR) [Wellbutrin XL] 150 mg PO DAILY 04/07/17 [History] FLUoxetine HCl [PROzac] 20 mg PO DAILY 04/07/17 [History] 3 Allergy/AdvReac Type Severity Reaction Status Date / Time almond Allergy Anaphylaxis Verified 04/07/17 10:50 All Systems PM: A 10-system review of systems was performed and is negative for pertinent findings except as documented above in the HPI. - Constitutional Vitals: Temp Pulse Resp BP Pulse Ox 99.0 F 88 18 159/99 100 04/07/17 10:14 04/07/17 19:31 04/07/17 19:31 04/07/17 19:31 04/07/17 19:31 General appearance: Present: A&O X 3, no acute distress, answers questions appropriately - Head Head exam: Present: atraumatic, normocephalic - Eye Eye exam: Present: PERRL, conjuntiva pink, sclera anicteric Pupils: Present: PERRL - Neck Neck exam general surgery: Present: supple, trachea midline. Absent: lymphadenopathy - Respiratory Respiratory exam: Present: CTAB. Absent: accessory muscle use, rales, rhonchi, wheezes - Cardiovascular Cardiovascular exam: Present: RRR, +S1, +S2. Absent: diastolic murmur, gallop, rubs, systolic murmur - GI/Abdominal GI/Abdominal exam: Present: normal bowel sounds, soft, no peritoneal signs. Absent: distended, tenderness - Extremities Exam Extremities exam: Present: pedal edema (B/L pitting pedal edema up to knees, Rt > Lt), warm, radial pulses palpable and symmetrical. Absent: calf tenderness, cyanotic - Neurological Exam Neurological exam: Present: CN II-XII intact, oriented X3, no focal deficits. Absent: pronater drift, facial droop, speech deficit - Skin Skin exam: Present: dry, intact Internal Med - H&P Results - Labs CBC & Chem 7: 04/07/17 11:34 04/07/17 11:34
--- NOTE | 2017-04-07 22:18 | OB/GYN Consult Note ---
Date of Encounter: 04/08/17 Time of Encounter: 22:00 Assessment and Plan (1) Status post vaginal delivery Current Visit: Yes Status: Acute POD #6 Patient denies abnormal uterine bleeding, denies abnormal breast discharge or pain. Fundus firm No further OBGYN intervention required at this time, will sign off for inpatient care. Please follow-up post- care outpatient. Thank you for the consult. History of Present Illness Consult date: 04/07/17 Reason for consult: other (POD #6 without complications presents with BL LE edema) Chief complaint: Bilateral LE swelling History of present illness: Ms. Beasley is a 26 year old female POD#6 with hx of depression presents to ED with complaints of b/l leg swelling. Pt reports leg swelling started by the end of but worsening since delivery. Pt denies leg pain. Pt denies fever, runny nose, or sore throat. Pt has mild nonproductive cough for about 3 days. She admits to SOB on exertion. In ER, leg US doppler ordered, preliminary result negative for DVT. CTA was also ordered, no PE but was found multifocal pneumonia. Echo was ordered and pt was found LVEF 60-65%. BNP mildly elevated. Pt was admitted for HCAP and possible diastolic CHF. Patient denies increased vaginal bleeding, breast tenderness or abnormalities. Per ED note, patient developed reaction to Vancomycin and received dose of benadryl. Past Med Surg Social Fam HX - Past Medical History Medical history: other Psychiatric history: anxiety, depression - Past Surgical History Surgical History: other - Social History Smoking Status: Never smoker Smokeless Tobacco Status: No Alcohol use: none Drug use: none - Family History Grandmother Adopted: No Living Status: Hx Family Cardiac Disorders: Yes (chf) Hx Family Respiratory Disorders: No Hx Family Cancer: Yes (colon ca) Hx Family GI Disorders: No Hx Family Endocrine Disorder: Yes (dm) Hx Family Neuromuscular Disorders: No Hx Family Neurologic Disorders: No Hx Family HEENT Disorders: No Hx Family Autoimmune Disorders: No Medications and Allergies Acetaminophen [Tylenol] 650 mg PO Q6HR PRN tablet 04/02/17 [Rx] Benzocaine/Menthol [place] [Dermoplast [place]] 1 appl TP QID PRN aerosol 04/02/17 [Rx] Docusate [Colace] 100 mg PO BID #60 capsule 04/02/17 [Rx] Ferrous Sulfate 325 mg PO DAILY #30 tablet 04/02/17 [Rx] Ibuprofen [Motrin] 600 mg PO Q6HR PRN #30 tablet 04/02/17 [Rx] BuPROPion XL (24 HR) [Wellbutrin XL] 150 mg PO DAILY 04/07/17 [History] FLUoxetine HCl [PROzac] 20 mg PO DAILY 04/07/17 [History] 3 Allergy/AdvReac Type Severity Reaction Status Date / Time almond Allergy Anaphylaxis Verified 04/07/17 10:50 vancomycin Allergy Swelling Verified 04/07/17 22:40 of Lip/Tongue/Throat Review of Systems Constitutional: no excessive sweating, no weight loss Nose, mouth and throat: no dizziness, no headache(s) Cardiovascular: no chest pain, no palpitations Respiratory: no cough, no dyspnea Gastrointestinal: no abdominal pain, no change in bowel habits Musculoskeletal: no muscle weakness, no numbness Musculoskeletal: bilateral: foot swelling Integumentary: no hirsutism, no striae Psychiatric: no depression, no difficulty concentrating Endocrine: as per HPI Hematologic/Lymphatic: no easy bruising, no lymphadenopathy Exam - Vital Signs Vital signs: Initial Vital Signs Temp Pulse Resp BP Pulse Ox 99.0 F 95 18 150/97 97 04/07/17 10:14 04/07/17 10:14 04/07/17 10:14 04/07/17 10:14 04/07/17 10:14 - Constitutional Constitutional: well developed, well nourished, no acute distress - HEENT HEENT: Normocephaly, Mucus Membranes Moist - Neck Neck exam: full ROM - Lungs Respiratory exam: rales - Cardiovascular Cardiovascular exam: RRR - Abdomen Abdomen: Present: bowel sounds normal - Extremities Extremities exam: calf tenderness, pedal edema Deep Tendon Reflex Grade: 2+ Normal - Uterus Uterus exam: Present: normal size (Fundus U-2), normal contour Results Result Diagrams: 04/07/17 11:34 04/07/17 11:34 Abnormal lab results RBC 3.32 M/mcL (3.82-4.97) L 04/07/17 11:34 Hgb 9.3 g/dL (11.5-15.4) L 04/07/17 11:34 Hct 29.9 % (35.3-44.9) L 04/07/17 11:34 MCHC 31.1 g/dL (31.6-35.5) L 04/07/17 11:34 RDW 16.9 % (11.5-14.5) H 04/07/17 11:34 Chloride 110 mEq/L (98-107) H 04/07/17 11:34 Carbon Dioxide 22 mEq/L (23-29) L 04/07/17 11:34 Calcium 8.4 mg/dL (8.6-10.3) L 04/07/17 11:34 B-Natriuretic Peptide 290 pg/mL (Less than 100) H 04/07/17 11:34 Serum Total Protein 5.8 g/dL (6.4-8.9) L 04/07/17 11:34 Albumin 2.9 g/dL (3.5-5.7) L 04/07/17 11:34 Albumin/Globulin Ratio 1.0 (1.1-2.2) L 04/07/17 11:34 All other labs normal. Consult Discharge Plan - Plan Referrals: Lisa Miranda, PURCHASING OFFICER [Primary Care Provider] -
[2017-04-08] MEDS ORDERED: *HR* Enoxaparin 40 MG/0.4 ML SYRINGE SQ SCH (06:00)
[2017-04-08] MEDS ORDERED: Doxycycline 100 MG in 0.9 % Sodium Chloride Mini Bag 100 ML IVPB SCH (06:00)
[2017-04-08 06:04] LABS: Basophils # 0.1 K/mcL (0.0-0.2); Basophils % 0.6 %; Eosinophils # 0.3 K/mcL (0.0-0.6); Eosinophils % 2.6 %; Hematocrit 32.5 % (35.3-44.9); Hemoglobin 10.1 g/dL (11.5-15.4); Immature Granulocytes % 0.8 % (0-4); Lymphocytes # 2.7 K/mcL (0.6-4.6); Lymphocytes % 25.6 %; Mean Corpuscular HGB Conc 31.1 g/dL (31.6-35.5); Mean Corpuscular Hemoglobin 27.9 pg (28.0-33.3); Mean Corpuscular Volume 89.8 fL (83.0-100.0); Mean Platelet Volume 9.8 fL (9.4-12.4); Monocytes # 0.9 K/mcL (0.0-1.3); Monocytes % 8.9 %; Neutrophils # 6.4 K/mcL (1.6-8.9); Platelet Count 390 K/mcL (140-400); Red Blood Count 3.62 M/mcL (3.82-4.97); Red Cell Distribution Width 17.2 % (11.5-14.5); Segmented Neutrophils % 61.5 %
[2017-04-08 06:29] LABS: BUN/Creatinine Ratio 12 (6-26); Blood Urea Nitrogen 11 mg/dL (6-20); Calcium 8.4 mg/dL (8.6-10.3); Carbon Dioxide 25 mEq/L (23-29); Chloride 106 mEq/L (98-107); Glucose 93 mg/dL (70-105); Magnesium 2.2 mg/dL (1.6-2.6); Osmolality,Calculated 287 (280-300); Potassium 3.9 mEq/L (3.5-5.1); Sodium 139 mEq/L (136-145); eGFR For African Americans > 60 (> 60); eGFR For Non-African Americans > 60 (> 60)
[2017-04-08] MEDS ORDERED: FLUoxetine 20 MG CAPSULE PO SCH (09:00)
[2017-04-08] MEDS ORDERED: Furosemide 20 MG/2 ML VIAL IVP SCH (09:00)
[2017-04-08] MEDS ORDERED: BuPROPion XL (24 HR) 150 MG TABLET PO SCH (09:00)
--- NOTE | 2017-04-08 11:21 | Cardiology Consult Note ---
Date of Encounter: 04/08/17 Time of Encounter: 11:18 Assessment and Plan (1) Volume overload Current Visit: Yes Status: Acute Patient is a 26 year old female who is one week removed from vaginal delivery. She describes the development of lower extremity edema prior to delivery, which seemed to worsen after delivery. She also describes shortness of breath. Testing in the emergency room was negative for DVT, PE, but did demonstrate evidence of possible pulmonary vascular congestion. Patient given Lasix. Patient states lower extremity edema has completely resolved, dyspnea has greatly improved. Echocardiogram demonstrates normal LV function, no significant valvular disease. It seems this fluid retention is likely related to recent , delivery with associated fluid shifts. I suspect this is noncardiogenic. No further cardiac testing. Patient's volume status appears to be back to baseline. Low sodium diet encouraged. Your management regarding pneumonia. Cardiology will sign off. Thanks. Qualifiers: Hypervolemia type: unspecified Qualified Code(s): E87.70 - Fluid overload, unspecified Discussion w patient/family: The assessment and plan as outlined above was discussed with the patient and/or family members who expressed understanding and agreement. All questions were answered. Thank you for involving us in the care of your patient. Please call with any questions. History of Present Illness Consult date: 04/08/17 Requesting physician: Giovanny King Consult reason: Fluid retention Chief complaint: Swelling, shortness of breath History of present illness: Ms. Beasley is a 26 year old female who delivered a baby approximately one week ago by vaginal delivery. Patient reports likely edema and swelling prior to delivery, which had slowly developed throughout the course of her . Reports shortness of breath and cough for the last few days. Patient seen in the ER yesterday. Lower extremity venous duplex negative for DVT. CTA negative for PE, but demonstrated evidence of multifocal pneumonia and a possible component of pulmonary edema. Patient given a dose of Lasix, which she states greatly improved her symptoms. She states her lower extremity edema is resolved. She is on antibiotics for possible pneumonia. Past Med Surg Social Fam HX - Past Medical History Medical history: other Psychiatric history: anxiety, depression - Past Surgical History Surgical History: other - Social History Smoking Status: Never smoker Smokeless Tobacco Status: No Alcohol use: none Drug use: none - Family History Grandmother Adopted: No Living Status: Hx Family Cardiac Disorders: Yes (chf) Hx Family Respiratory Disorders: No Hx Family Cancer: Yes (colon ca) Hx Family GI Disorders: No Hx Family Endocrine Disorder: Yes (dm) Hx Family Neuromuscular Disorders: No Hx Family Neurologic Disorders: No Hx Family HEENT Disorders: No Hx Family Autoimmune Disorders: No Medications and Allergies Acetaminophen [Tylenol] 650 mg PO Q6HR PRN tablet 04/02/17 [Rx] Benzocaine/Menthol [place] [Dermoplast [place]] 1 appl TP QID PRN aerosol 04/02/17 [Rx] Docusate [Colace] 100 mg PO BID #60 capsule 04/02/17 [Rx] Ferrous Sulfate 325 mg PO DAILY #30 tablet 04/02/17 [Rx] Ibuprofen [Motrin] 600 mg PO Q6HR PRN #30 tablet 04/02/17 [Rx] BuPROPion XL (24 HR) [Wellbutrin XL] 150 mg PO DAILY 04/07/17 [History] FLUoxetine HCl [PROzac] 20 mg PO DAILY 04/07/17 [History] 3 Allergy/AdvReac Type Severity Reaction Status Date / Time almond Allergy Anaphylaxis Verified 04/07/17 10:50 vancomycin Allergy Swelling Verified 04/08/17 09:59 of Lip/Tongue/Throat All Systems Review: A 10-system review of systems was performed and is negative for pertinent findings except as documented above in the HPI. - Cardiovascular Cardiovascular: as per HPI, dyspnea at rest, dyspnea on exertion, leg edema - Respiratory Respiratory: cough Physical Examination Vital Signs, Last 4 Hours Temp Pulse Resp BP Pulse Ox 04/08/17 07:36 98.5 F 88 18 144/98 96 General: Conversant, No Apparent Distress HEENT: Atraumatic, Normocephaly, Mucus Membranes Moist Neck: No JVD, Normal carotid pulses Cardiac: Reg Rate and Rhythm, Normal S1 and S2, No Murmur Lungs: Normal Breath Sounds, No Wheeze, Rales, Rhonchi Neuro: Alert and responsive, No focal deficits noted Abdomen: Soft, Non-Tender Skin: No rashes noted on visualized skin Musculoskeletal: No Chest Wall Tenderness Extremities: No Clubbing, No Cyanosis, No Edema Results 04/08/17 05:45 04/08/17 05:45 Lab Results 04/08/17 04/08/17 05:45 05:45 WBC 10.5 Hgb 10.1 L Hct 32.5 L Plt Count 390 Sodium 139 Potassium 3.9 Chloride 106 Carbon Dioxide 25 BUN 11 Creatinine 0.94 Glucose 93 Calcium 8.4 L Magnesium 2.2 - Imaging and Cardiology Echo: report reviewed - EKG Interpretation EKG results cardiology: personally reviewed Consult Discharge Plan - Plan Referrals: Lisa Miranda, MANDIE [Primary Care Provider] -
[2017-04-08 11:30] VITALS: BP 158/106
[2017-04-08 11:42] LABS: Bilirubin,Urine Negative (Negative); Blood,Urine Large (Negative); Color,Urine Yellow (Yellow); Glucose,Urine (UA) Normal (Normal); Ketones,Urine Negative (Negative); Leukocyte Esterase,Urine Large (Negative); Nitrite,Urine Negative (Negative); Protein,Urine Trace mg/dL (Neg-Trace); Urobilinogen,Urine Normal (Normal)
[2017-04-08 11:44] LABS: Bacteria,Urine None Seen per hpf (None-Few); Clarity,Urine Slightly Cloudy (Clear); Hyaline Casts,Urine None Seen per lpf (None-Few); RBC,Urine TNTC per hpf (0-3); Squamous Epithelial Cell,Urine Few per lpf (None-Few); WBC,Urine 50-100 per hpf (0-3)
[2017-04-08 11:54] LABS: Protein/Creatinine Ratio,Urine 2.15 mg/mg (0.00-0.20)
[2017-04-08 14:39] LABS: Protein/Creatinine Ratio,Urine 0.11 mg/mg (0.00-0.20)
--- NOTE | 2017-04-08 14:40 | OB/GYN Consult Note ---
Date of Encounter: 04/08/17 Time of Encounter: 14:34 Assessment and Plan (1) hypertension Current Visit: Yes Status: Acute BP 140's-150's/90's-100's today. Pt denies s/sx preeclampsia. PIH labs WNL. UPCR elevated on clean catch specimen but will recollect straight cath specimen due to lochia contamination. Await UPCR results. Start labetalol 200mg PO BID for blood pressure management. Will call Dr. De La Cruz with repeat BP and UPCR results to discuss further managment. (2) Status post vaginal delivery Current Visit: Yes Status: Acute Pt meeting all milestones. History of Present Illness Consult date: 04/08/17 Requesting physician: Melchor Cooper Reason for consult: other ( hypertension) History of present illness: Ms. Beasley is a 26 year old female who presented POD#6 s/p with hx of depression presents to ED with complaints of b/l leg swelling. Pt reports leg swelling started by the end of but worsening since delivery. Pt denies leg pain. Pt denies fever, runny nose, or sore throat. Pt has mild nonproductive cough for about 3 days. She admits to SOB on exertion. In ER, leg US doppler ordered, preliminary result negative for DVT. CTA was also ordered, no PE but was found multifocal pneumonia. Echo was ordered and pt was found LVEF 60-65%. BNP mildly elevated. Pt was admitted for pneumonia and possible diastolic CHF. Patient denies increased vaginal bleeding, breast tenderness or abnormalities. She has been treated with zosyn and doxycycline for pneumonia. She also received lasix. She reports feeling much better since admission. She denies [place], vision changes or RUQ pain. She is pumping breastmilk for baby. Past Med Surg Social Fam HX - Past Medical History Medical history: other Psychiatric history: anxiety, depression - Past Surgical History Surgical History: other - Social History Smoking Status: Never smoker Smokeless Tobacco Status: No Alcohol use: none Drug use: none - Family History Grandmother Adopted: No Living Status: Hx Family Cardiac Disorders: Yes (chf) Hx Family Respiratory Disorders: No Hx Family Cancer: Yes (colon ca) Hx Family GI Disorders: No Hx Family Endocrine Disorder: Yes (dm) Hx Family Neuromuscular Disorders: No Hx Family Neurologic Disorders: No Hx Family HEENT Disorders: No Hx Family Autoimmune Disorders: No Medications and Allergies Acetaminophen [Tylenol] 650 mg PO Q6HR PRN tablet 04/02/17 [Rx] Benzocaine/Menthol [place] [Dermoplast [place]] 1 appl TP QID PRN aerosol 04/02/17 [Rx] Docusate [Colace] 100 mg PO BID #60 capsule 04/02/17 [Rx] Ferrous Sulfate 325 mg PO DAILY #30 tablet 04/02/17 [Rx] Ibuprofen [Motrin] 600 mg PO Q6HR PRN #30 tablet 04/02/17 [Rx] BuPROPion XL (24 HR) [Wellbutrin XL] 150 mg PO DAILY 04/07/17 [History] FLUoxetine HCl [PROzac] 20 mg PO DAILY 04/07/17 [History] 3 Allergy/AdvReac Type Severity Reaction Status Date / Time almond Allergy Anaphylaxis Verified 04/07/17 10:50 vancomycin Allergy Swelling Verified 04/08/17 09:59 of Lip/Tongue/Throat Review of Systems Constitutional: no fever(s), no headache(s) Eyes: bilateral: blurred vision (patient denies), diplopia (patient denies) Cardiovascular: edema (1+ bilaterally), no chest pain, no dyspnea Respiratory: cough Menstruation: other (lochia light) Exam - Vital Signs Vital signs: Initial Vital Signs Temp Pulse Resp BP Pulse Ox 99.0 F 95 18 150/97 97 04/07/17 10:14 04/07/17 10:14 04/07/17 10:14 04/07/17 10:14 04/07/17 10:14 - Constitutional Constitutional: well developed, well nourished, no acute distress - HEENT HEENT: Mucus Membranes Moist - Lungs Respiratory exam: CTAB - Cardiovascular Cardiovascular exam: RRR - Abdomen Abdomen: Present: non tender - Extremities Extremities exam: normal inspection, pedal edema (1+ bilaterally) Deep Tendon Reflex Grade: 2+ Normal - Vulva Vulva: bilateral: normal Results Result Diagrams: 04/08/17 05:45 04/08/17 05:45 Abnormal lab results RBC 3.62 M/mcL (3.82-4.97) L 04/08/17 05:45 Hgb 10.1 g/dL (11.5-15.4) L 04/08/17 05:45 Hct 32.5 % (35.3-44.9) L 04/08/17 05:45 MCH 27.9 pg (28.0-33.3) L 04/08/17 05:45 MCHC 31.1 g/dL (31.6-35.5) L 04/08/17 05:45 RDW 17.2 % (11.5-14.5) H 04/08/17 05:45 Calcium 8.4 mg/dL (8.6-10.3) L 04/08/17 05:45 B-Natriuretic Peptide 290 pg/mL (Less than 100) H 04/07/17 11:34 Serum Total Protein 5.8 g/dL (6.4-8.9) L 04/07/17 11:34 Albumin 2.9 g/dL (3.5-5.7) L 04/07/17 11:34 Albumin/Globulin Ratio 1.0 (1.1-2.2) L 04/07/17 11:34 Urine Clarity Slightly Cloudy (Clear) A 04/08/17 11:25 Urine Blood Large (Negative) H 04/08/17 11:25 Ur Leukocyte Esterase Large (Negative) H 04/08/17 11:25 Urine Microscopic RBC TNTC per hpf (0-3) H 04/08/17 11:25 Urine Microscopic WBC 50-100 per hpf (0-3) H 04/08/17 11:25 Ur Culture Indicated? YES (NO) A 04/08/17 11:25 Protein/Creatinin Ratio 2.15 mg/mg (0.00-0.20) H 04/08/17 11:25 Urine Total Protein 28 mg/dL (1-14) H 04/08/17 11:25 All other labs normal. Consult Discharge Plan - Plan Referrals: Lisa Miranda, SUSTAINMENT LOGISTICS ANALYST [Primary Care Provider] -
--- NOTE | 2017-04-08 15:21 | Discharge Summary ---
<Melchor Cooper - Last Filed: 04/08/17 15:51> Date of Encounter: 04/08/17 Time of Encounter: 15:18 - Discharge Diagnosis (1) Pneumonia Priority: Primary Status: Acute Qualifiers: Pneumonia type: due to unspecified organism Laterality: bilateral Lung location: upper lobe of lung Qualified Code(s): J18.9 - Pneumonia, unspecified organism (2) Volume overload Priority: Primary Status: Acute Qualifiers: Hypervolemia type: unspecified Qualified Code(s): E87.70 - Fluid overload, unspecified (3) Swelling of lower extremity Priority: Primary Status: Acute (4) Status post vaginal delivery Priority: Secondary Status: Acute (5) Breast feeding status of mother Priority: Secondary Status: Acute - Discharge Medications Prescriptions: Cefdinir [Omnicef] 300 mg PO BID #12 capsule Furosemide [Lasix] 20 mg PO DAILY PRN #7 tablet PRN Reason: Swelling Labetalol [Trandate] 100 mg PO BID #60 tablet Home Medications: Acetaminophen [Tylenol] 650 mg PO Q6HR PRN tablet 04/02/17 [Rx] Benzocaine/Menthol [place] [Dermoplast [place]] 1 appl TP QID PRN aerosol 04/02/17 [Rx] Docusate [Colace] 100 mg PO BID #60 capsule 04/02/17 [Rx] Ferrous Sulfate 325 mg PO DAILY #30 tablet 04/02/17 [Rx] Ibuprofen [Motrin] 600 mg PO Q6HR PRN #30 tablet 04/02/17 [Rx] BuPROPion XL (24 HR) [Wellbutrin Xl] 150 mg PO DAILY 04/07/17 [History] FLUoxetine HCl [Prozac] 20 mg PO DAILY 04/07/17 [History] Cefdinir [Omnicef] 300 mg PO BID #12 capsule 04/08/17 [Rx] Furosemide [Lasix] 20 mg PO DAILY PRN #7 tablet 04/08/17 [Rx] Labetalol [Trandate] 100 mg PO BID #60 tablet 04/08/17 [Rx] Allergies/Adverse Reactions: 3 Allergy/AdvReac Type Severity Reaction Status Date / Time almond Allergy Anaphylaxis Verified 04/07/17 10:50 vancomycin Allergy Swelling Verified 04/08/17 09:59 of Lip/Tongue/Throat Date of admission: 04/07/17 21:24 Primary care physician: Lisa Miranda CNP Consults: 04/07/17 21:31 Consult to Cardiology [CONS] Routine Comment: Consulting Provider: [facility] Reason for Consult: leg swelling with exertional SOB, help for management. Call Completed: No Discharging clinician: Melchor Cooper Anticipated date of discharge: 04/08/17 - Patient Status Disposition: Home, Self-Care Condition: Good Functional capacity at discharge: independent ambulation Overall status at discharge: patient is progressing back to baseline - Discharge Instructions Follow Up With: Lisa Miranda CNP [Primary Care Provider] - [facility] OPER[facility] [Provider Group] Additional Instructions: Please follow up with her primary care provider at the next available appointment. Please take Cefdinir twice daily for 6 days. Use the Lasix as needed for lower extremity swelling. Please follow up with MULTIPLE RESAW OPERATOR at the next available appointment. - Diet and Activity Activity: increase activity as tolerated Diet: advance to your usual diet Interval History: Patient states that she is feeling much better today and has significantly improved. Patient states that she would like to go home today. Patient has no complaints at this time. Hospital course: Ms. Beasley is a 26 year old female was admitted to the hospital for pneumonia and lower extremity swelling. Patient was started on IV antibiotics for the pneumonia due to her recently been in the hospital for a vaginal delivery. Due to the patient having swelling and being hypertensive we had ordered a urinalysis and a protein creatinine ratio. This was initially elevated however after talking with OB this was likely contaminants we repeated the protein creatinine ratio as a straight catheter. This is come back within normal limits. OBs recommendation was for labetalol for blood pressure control. This will be prescribed to the patient prior to discharge. Patient has significantly improved. Patient improved sooner than we had expected. After speaking with MULTIPLE RESAW OPERATOR there were no agreement with the patient being discharged and feel that she does not need to be in the hospital at this time. - Time Spent with Patient Total time spent providing and/or coordinating discharge services: Greater than 30 minutes Specific discharge activities: 40 - Constitutional Vitals: Temp Pulse Resp BP Pulse Ox 98.7 F 85 20 158/106 93 04/08/17 11:28 04/08/17 11:28 04/08/17 11:28 04/08/17 11:28 04/08/17 11:28 General appearance: Present: A&O X 3, no acute distress, answers questions appropriately - Head Head exam: Present: atraumatic, normocephalic - Neck Neck exam general surgery: Present: full ROM, normal inspection, trachea midline - Respiratory Respiratory exam: Present: CTAB - Cardiovascular Cardiovascular exam: Present: RRR, +S1, +S2. Absent: diastolic murmur, gallop, rubs, systolic murmur - GI/Abdominal GI/Abdominal exam: Present: normal bowel sounds, soft, no peritoneal signs. Absent: distended, tenderness - Extremities Exam Extremities exam: Present: pedal edema (Trace edema) - Neurological Exam Neurological exam: Present: alert, oriented X3, no focal deficits. Absent: facial droop, speech deficit - Psychiatric Psychiatric exam: Present: normal affect, normal mood - Skin Skin exam: Present: dry, intact, warm <Apolinar Duque - Last Filed: 04/08/17 16:12> Date of Encounter: 04/08/17 Date of admission: 04/07/17 21:24 Primary care physician: Lisa Miranda CNP Consults: 04/07/17 21:31 Consult to Cardiology [CONS] Routine Comment: Consulting Provider: Cardiology [place] Reason for Consult: leg swelling with exertional SOB, help for management. Call Completed: No Hospital course: Ms. Beasley is a 26 year old female - Time Spent with Patient Total time spent providing and/or coordinating discharge services: - Constitutional Vitals: Temp Pulse Resp BP Pulse Ox 98.7 F 85 20 158/106 93 04/08/17 11:28 04/08/17 11:28 04/08/17 11:28 04/08/17 11:28 04/08/17 11:28 - Attending Attestation Community-acquired pneumonia, unknown antigen Continue Cefdinir HTN, labetalol per [employer]S [employer]PLICATIONS PROGRAMMING LEAD Lasix as needed only TIme spent : 40 min I examined this patient and my medical decision-making was reviewed with the Resident Physician. I agree with the documented findings, disposition and treatment plan as described except to the extent set forth below.
== END 2017-04-08 17:46 | disposition home or self-care (01) | DRG 776 ==
LOC: EMEROO 10:12 → 2NENU 10:12
PROVIDERS: ADMIT Internal Medicine; ATTEND Internal Medicine